=== PATIENT | male | born 1980 | race Caucasian/White ===

== ENCOUNTER 2019-10-30 13:31 | Emergency (ER) | payer MEDICAID ==
[~2019-10-30] VITALS: Ht 175.3 cm; Wt 85.8 kg
[2019-10-30 14:39] VITALS: Ht 175.3 cm; Wt 85.8 kg
[2019-10-30 17:00] VITALS: BP 137/67
== END 2019-10-30 17:05 | disposition home or self-care (01) ==
LOC: ED 13:31
DX: H53.8 Other visual disturbances (principal); H40.9 Unspecified glaucoma; Z98.890 Other specified postprocedural states
CPT/HCPCS: 82962